=== PATIENT | female | born 1985 ===

== ENCOUNTER 2018-06-02 17:31 | Emergency (ER) | payer MEDICAID, SELFPAY ==
[2018-06-02 17:39] VITALS: BP 119/72; PULSE 92; RESP 16; TEMP 36.9; O2SAT 100
--- NOTE | 2018-06-02 18:11 | ED.GENADUL_ITS ---
Discharge Plan Disposition Patient Disposition: HOME Condition: Stable Discharge Details Chief Complaint: RespSymp Clinical Impression: Infection, respiratory tract Primary Care Provider: Jenn Corrales ED Provider: Dave Branham Home Meds and New Rx's Prescriptions: New doxycycline hyclate 100 mg capsule 100 mg PO BID Qty: 14 RF: 0 benzonatate 200 mg capsule 200 mg PO TID PRN (Reason: cough) Qty: 30 RF: 0 Discharge Instructions Instructions: Viral Syndrome (ED), Pneumonia (ED) Additional Instructions: During illness please get plenty of rest and stay well-hydrated. You may continue to use [id number] acetaminophen or ibuprofen as needed for body aches and fever. If you begin the antibiotics please take them for the full course of 7 days and return to emergency department for any new or significant worsening of symptoms or further concerns you may have. Referrals: Jenn Corrales [Primary Care Provider] - (As needed for reassessment) Discharge Data Discharge Date/Time-TO BE ENTERED AT DEPARTURE: 06/02/18 18:31 Medical Decision Making Patient presenting to the emergency department for chief complaint of cough fever and chills. Patient states viral symptoms that she had approximately 1 week ago that lasted approximately 5 days with about 24 hours of relief and over the past 24 hours she has noticed a return of fever, worsening cough, and burning in her chest. Patient does state that her son recently had a viral illness after she did and is unsure if she has now got influenza or a second viral illness. Physical exam shows clear lung sounds bilateral, nontoxic appearing patient, subjective nasal congestion without sinus tenderness, mild fluid behind right ear otherwise unremarkable HEENT exam. Normal vital signs without hypotension, significant tachycardia, hypoxia or elevated fever. Given clear lung sounds I do not feel the patient needs chest x-ray. Did discuss with patient possible secondary viral illness given exposure to sun after initial illness for concern for secondary bacterial illness/post viral pneumonia given new fever and worsening cough. Given reassuring physical exam we did discuss risk versus benefit of antibiotic therapy. Patient states that typically she does not like taking antibiotics or medications and that she has to. We agreed upon a plan of care for her to wait on starting antibiotics until tomorrow morning to see how she feels this evening and to continue her use of NSAIDs to see if this helps her symptoms. If patient is not improving she clearly states understanding to start the doxycycline tomorrow morning and to take for a full course of medication. Patient also given prescription for Tessalon Perles to use as cough suppressant if needed. Return instructions were discussed. After discussion of diagnosis and plan of care patient has no further needs, questions, or concerns and states clear understanding to return to the emergency department for any worsening symptoms. HPI General Mode of arrival: ambulatory . Date/Time Provider Initiated Documentation: 06/02/18 17:51 . Limitations to Documentation: no limitations . Information obtained by: patient and RN notes reviewed . History of Present Illness 33 year old F presents to the emergency department with the chief complaint of cough, fever, described as mild, with intensity rated at 3. Quality is described as burning, and is localized to the chest. Patient started experiencing this week(s) (1) and it has been intermittent (worsening over the past 24 hours). No relieving factors improve symptom(s), No exacerbating factors reported . Patient did receive the following treatments prior to arrival, NSAID Related Data Home Medications Medication Instructions Recorded Confirmed benzonatate 200 mg PO TID PRN #30 cap 06/02/18 doxycycline hyclate 100 mg PO BID #14 cap 06/02/18 Previous Rx's Medication Instructions Recorded benzonatate 200 mg PO TID PRN #30 cap 06/02/18 doxycycline hyclate 100 mg PO BID #14 cap 06/02/18 Allergies Allergy/AdvReac Type Severity Reaction Status Date / Time acetaminophen [From Vicodin] AdvReac Intermediate Itching Unverified 06/02/18 17:42 hydrocodone [From Vicodin] AdvReac Intermediate Itching Unverified 06/02/18 17:42 General Stated Complaint: RespSymp AILYN: 3 Review of Systems Constitutional Reports body ache(s), Reports chills, Reports fever(s), Denies headache(s) and Reports malaise Eyes Denies eye discharge ENT Reports as per HPI, Denies ear discharge, Denies otalgia, Denies headache(s), Reports nasal congestion, Reports nasal discharge, Denies neck pain, Denies sinu s pain, Reports sinus pressure, Denies sore throat and Denies throat swelling Cardiovascular Denies chest pain and Denies dyspnea Respiratory Reports cough, Reports pain with cough (burning) and Denies dyspnea Musculoskeletal Denies joint swelling and Denies neck pain Integumentary/Breasts Denies rash Neurologic Denies headache(s) Allergic/Immunologic Denies throat swelling PFSH Social History Smoking and Tabacco status: Never Exam Const General: cooperative, comfortable and no acute distress Orientation: alert and awake [facility] Head: normal to inspection, normocephalic and atraumatic Ears: hearing grossly normal bilaterally, TM normal on the left and TM abnormal with fluid behind the TM on the right General nose exam: external nose normal Face and sinus: normal facial exam, sinuses nontender and no erythema Mouth: oral mucosae normal, no drooling, no muffled voice and no trismus Throat: posterior oropharynx normal, tonsils normal and uvula midline Neck Neck: normal visual inspection, full ROM, no lymphadenopathy, no meningeal signs, trachea midline and supple Resp Effort & Inspection: normal respiratory effort, able to speak in complete sentences and cough Quality of cough: dry Auscultation: clear to auscultation bilaterally Cardio Rate: regular rate Rhythm: regular rhythm Heart Sounds: S1 normal, S2 normal, normal S1 and S2, no click, no gallops, no murmurs and no rubs Skin General skin exam: no rashes or lesions noted and dry skin (warm) Neuro General: alert, awake, oriented x3, gait normal and moves all extremities Cognition: normal cognition Speech: speech normal Course Vital Signs Temperature 36.9 C 06/02/18 17:39 Pulse 92 H 06/02/18 17:39 Respiratory Rate 16 06/02/18 17:39 Blood Pressure 119/72 06/02/18 17:39 Pulse Oximetry 100 06/02/18 17:39 Temperature 36.9 C 06/02/18 17:39 Temperature Source Temporal Artery Scan 06/02/18 17:39 Pulse 92 H 06/02/18 17:39 Respiratory Rate 16 06/02/18 17:39 Respiratory Effort 06/02/18 18:03 Respiratory Depth Normal 06/02/18 18:03 Blood Pressure 119/72 06/02/18 17:39 Blood Pressure Position Sitting 06/02/18 17:39 Pulse Oximetry 100 06/02/18 17:39 Oxygen Delivery Method Room Air 06/02/18 17:39 Oxygen Flow Rate 0 06/02/18 17:39
[2018-06-02 18:31] VITALS: BP 119/72; PULSE 88; RESP 16; TEMP 36.9; O2SAT 100
== END 2018-06-02 18:31 | disposition home or self-care (01) ==
PROVIDERS: Emergency Provider Nurse Practitioner Family; PCP Nurse Practitioner Family
DX: J06.9 Acute upper respiratory infection, unspecified (principal)
CPT/HCPCS: 87449; 99283